=== PATIENT | male | born 1955 | race Caucasian/White ===

== ENCOUNTER 2017-07-05 13:22 | Emergency (ER) | payer OTHER ==
[~2017-07-05] VITALS: Ht 182.9 cm; Wt 90.7 kg
[2017-07-05] MEDS ORDERED: HYDROCHLOROTH12.5 MG (14:16)
[2017-07-05] MEDS ORDERED: VASOTEC10 MG (14:16)
[2017-07-05] MEDS ORDERED: NORVASC10 MG (14:16)
[2017-07-05] MEDS ORDERED: ARTHROTEC 75 M1 EACH (14:17)
== END 2017-07-05 18:04 | disposition home or self-care (01) ==
LOC: ER 13:22
DX: S66.812A Strain of other specified muscles, fascia and tendons at wrist and hand level, left hand, initial encounter (principal); X50.3XXA Overexertion from repetitive movements, initial encounter; Y93.89 Activity, other specified; Y92.098 Other place in other non-institutional residence as the place of occurrence of the external cause; Y99.8 Other external cause status

== ENCOUNTER 2017-07-12 07:16 | Day surgery (SDC) | payer OTHER ==
[~2017-07-12 07:16] MED LIST: ARTHROTEC 75 M1 EACH; HYDROCHLOROTH12.5 MG; NORVASC10 MG; VASOTEC10 MG
== END 2017-07-12 15:50 | disposition home or self-care (01) ==
LOC: CIR.AMB 07:16
DX: S63.33 Traumatic rupture of ulnocarpal (palmar) ligament (principal)

== ENCOUNTER → 2017-08-06 13:03 | Outpatient (CLI) | payer OTHER | END | disposition home or self-care (01) | LOC: RAD 13:03 | DX: M25.532 Pain in left wrist (principal) ==